=== PATIENT | male | born 1960 | race Hispanic/Latino ===

== ENCOUNTER → 2021-06-03 12:49 | Outpatient (CLI) | payer OTHER, SELFPAY ==
--- NOTE | ~2021-06-03 | XR_ITS ---
XR shoulder RT min 2V DATE: 06/03/2021 13:37 INDICATION: Right arm and shoulder pain TECHNIQUE: 4 views COMPARISON: None FINDINGS: No fracture or dislocation, periosteal reaction or bone destruction or abnormal soft tissue calcification of the right shoulder. IMPRESSION: No significant abnormality of the right shoulder Reviewed, dictated and finalized at location B.
--- NOTE | ~2021-06-03 | XR_ITS ---
XR AC joint BI DATE: 06/03/2021 13:57 INDICATION: Right arm and shoulder pain TECHNIQUE: AP views with and without weights COMPARISON: None FINDINGS: There is no evidence of acromioclavicular separation on either side. IMPRESSION: No evidence of AC separation Reviewed, dictated and finalized at Location A. Reviewed, dictated and finalized at location B.
== END ==
DX: M25.511 Pain in right shoulder (principal)
CPT/HCPCS: 73030; 73050